=== PATIENT | female | born 1960 | race African-American/Black ===

== ENCOUNTER 2016-11-03 07:58 | Day surgery (SDC) | payer OTHER ==
[2016-11-03] MEDS ORDERED: PROPOFOL 20 ML ONE ×2 (08:01)
[2016-11-03 08:27] VITALS: BMI 32.3
[2016-11-03 10:59] VITALS: BP 134/76; PULSE 79; TEMP 98
== END 2016-11-03 10:45 | disposition home or self-care (01) ==
LOC: FASU-ENDO 07:58
PROVIDERS: ATTEND Internal Medicine Gastroenterology
PROC: 0DJD8ZZ Inspection of Lower Intestinal Tract, Via Natural or Artificial Opening Endoscopic (ICD-10-PCS; principal; 2016-11-03 09:06)
DX: Z12.11 Encounter for screening for malignant neoplasm of colon (principal)

== ENCOUNTER 2019-06-21 20:20 | Emergency (ER) | payer OTHER ==
[2019-06-21 20:29] VITALS: BP 138/83; PULSE 99; TEMP 98.5; BMI 29.8
--- NOTE | 2019-06-21 20:29 | PDOC ---
Rapid Medical Evaluation Time Seen by Provider: 06/21/19 20:22 Medical Evaluation: Allergies Allergy/AdvReac Type Severity Reaction Status Date / Time Sulfa (Sulfonamide Allergy Rash Verified 11/03/16 08:16 Antibiotics) 06/21/19 20:24 Pt c/o: slipped on ground on monday landed on back and ribs, hitting back on head, now with diff taking deep breath Pt on brief exam: lcta, vss, tender over rt post ribs near scapula Pt ordered for: ribs and cxr Pt to proceed to the ED Discharge Disposition - Diagnosis Rib pain - Referrals - Patient Instructions - Post Discharge Activity
[2019-06-21] MEDS ORDERED: ACETAMINOPHEN 325 MG TABLET (FP) PO ONE (20:50)
[2019-06-21] MEDS ORDERED: ACETAMINOPHEN 325 MG TABLET (FP) ONE (20:52)
[2019-06-21] MEDS ORDERED: ACETAMINOPHEN 650 MG/20.3 ML ORAL SOLUTION (CUPS) ONE (20:54)
--- NOTE | 2019-06-21 21:00 | PDOC ---
History of Present Illness - General Chief Complaint: Back Pain Stated Complaint: FALL Time Seen by Provider: 06/21/19 20:22 History Source: Patient - History of Present Illness Occurred: reports: other Pain Location: reports: back Method of Injury: Yes: fall Past History - Past Medical History Allergies/Adverse Reactions: Allergies Allergy/AdvReac Type Severity Reaction Status Date / Time Sulfa (Sulfonamide Allergy Rash Verified 06/21/19 20:45 Antibiotics) Anemia: No Asthma: No Cancer: No Cardiac Disorders: No CVA: No COPD: No CHF: No Dementia: No Diabetes: No GI Disorders: No Disorders: No HTN: Yes (BORDERLINE) Hypercholesterolemia: No Liver Disease: No Seizures: No Thyroid Disease: No - Surgical History Abdominal Surgery: No Appendectomy: No Cardiac Surgery: No Cholecystectomy: No Lung Surgery: No Neurologic Surgery: No - Psycho Social/Smoking Cessation Hx Smoking History: Former smoker Have you smoked in the past 12 months: No Information on smoking cessation initiated: No Hx Alcohol Use: No Drug/Substance Use Hx: No Substance Use Type: None Hx Substance Use Treatment: No Review of Systems - Review of Systems Respiratory: No: Shortness of Breath Cardiac (ROS): No: Chest Pain, Lightheadedness, Palpitations ABD/GI: No: Nausea, Vomiting, Abdominal cramping Neurological: No: Headache, Numbness, Tingling, Weakness, Dizziness *Physical Exam - Vital Signs Last Vital Signs Temp Pulse Resp BP Pulse Ox 98.5 F 99 H 19 138/83 98 06/21/19 20:24 06/21/19 20:24 06/21/19 20:24 06/21/19 20:24 06/21/19 20:24 - Physical Exam General Appearance: Yes: Appropriately Dressed. No: Apparent Distress HEENT: positive: Normal Voice Neck: positive: Supple Respiratory/Chest: positive: Lungs Clear, Normal Breath Sounds. negative: Chest Tender (no crepitus or step offs), Respiratory Distress Cardiovascular: positive: Regular Rate, S1, S2 Gastrointestinal/Abdominal: positive: Soft. negative: Tender Musculoskeletal: positive: Normal Inspection, Vertebral Tenderness (diffusely) Integumentary: positive: Dry, Warm Neurologic: positive: Fully Oriented, Alert, Normal Mood/Affect Medical Decision Making - Medical Decision Making 06/21/19 20:54 59-year-old female, no significant history, here with back pain. Patient states she slipped and fell down several steps 3 days ago, tumbling mostly onto her back and has been having diffuse back pain since, worse with deep inspiration, otherwise no shortness of breath, chest pain or palpitations. Did not hit head and no LOC, headache, dizziness, nausea or vomiting. Not on any blood thinners. No neuro sxs. See exam Back contusion No e/o serious injury on exam -XR rib/cxr neg for obvious fx/lung injury -Dc w/ OTC meds as needed Discharge - Discharge Information Problems reviewed: Yes Clinical Impression/Diagnosis: Back contusion Qualifiers: Encounter type: initial encounter Laterality: unspecified laterality Qualified Code(s): S20.229A - Contusion of unspecified back wall of thorax, initial encounter Fall Qualifiers: Encounter type: initial encounter Qualified Code(s): W19.XXXA - Unspecified fall, initial encounter Condition: Good Disposition: HOME - Follow up/Referral - Patient Discharge Instructions Patient Printed Discharge Instructions: Contusion Additional Instructions: Your xrays were negative for fracture or lung injury Take Tylenol as needed for muscular back pain - Post Discharge Activity
== END 2019-06-21 21:03 | disposition home or self-care (01) ==
LOC: JERFT 20:20
DX: S20.221A Contusion of right back wall of thorax, initial encounter (principal); W10.8XXA Fall (on) (from) other stairs and steps, initial encounter; Y93.89 Activity, other specified; Y92.89 Other specified places as the place of occurrence of the external cause; Y99.8 Other external cause status; I10 Essential (primary) hypertension; Z88.2 Allergy status to sulfonamides
CPT/HCPCS: 71046-TC-FY; 71101-TC-RT-FY; 99283-25

== ENCOUNTER 2020-12-07 11:15 | Emergency (ER) | payer OTHER ==
[2020-12-07] MEDS ORDERED: LACTATED RINGERS SOLUTION 1000 ML INFUS.BAG IV ONE (11:19)
[2020-12-07 11:28] VITALS: TEMP 98.3; BMI 31.1
[2020-12-07] MEDS ORDERED: ACETAMINOPHEN 1000 MG/100 ML VIAL (NON FORMULARY) IVPB ONE (11:42)
[2020-12-07] MEDS ORDERED: FAMOTIDINE 20 MG/50 ML IVPB 20 MG/50 ML MG IVPB ONE ×2 (11:42→11:44)
[2020-12-07] MEDS ORDERED: ACETAMINOPHEN INJECTION 100 ML IVPB ONE (11:45)
[2020-12-07 12:08] LABS: WHITE BLOOD COUNT 7.1 K/mm3 (4.0-10.8)
[2020-12-07 12:14] LABS: HEMATOCRIT 35.4 % (32.4-45.2); HEMOGLOBIN 11.6 GM/dl (10.7-15.3); MCH 28.6 pg (25.7-33.7); MCHC 32.8 g/dl (32.0-36.0); MEAN CELL VOLUME 87.2 fl (80-96); MEAN PLT VOLUME 8.1 fl (7.5-11.1); PLATELET COUNT 318 K/MM3 (134-434); RBC 4.06 M/mm3 (3.60-5.2); RDW 14.9 % (11.6-15.6)
[2020-12-07 12:23] LABS: ALBUMIN 4.3 g/dl (3.4-5.0); ALK PHOS 40 U/L (45-117); ANION GAP 12 MMOL/L (8-16); BILIRUBIN,TOTAL 0.8 mg/dl (0.2-1); CALCIUM 9.6 mg/dl (8.5-10); CHLORIDE 98 mmol/L (98-107); CO2 26 mmol/L (21-32); CREATININE 0.8 mg/dl (0.55-1.3); GLUCOSE,RANDOM 187 mg/dl (74-106); SGOT/AST 17 U/L (15-37); SGPT/ALT 15 U/L (13-61); SODIUM 136 mmol/L (136-145); TOT PROT 7.8 g/dl (6.4-8.2)
[2020-12-07 12:50] LABS: PLATELET ESTIMATE ADEQUATE
[2020-12-07 13:02] LABS: LIPASE 60 U/L (73-393)
[2020-12-07 13:16] LABS: CHOLESTEROL 263 mg/dl (50-200); HDL CHOLESTEROL 55 mg/dl (40-60); LDL CHOLESTEROL (ONLY DFH) 185 mg/dl (5-100); TRIGLYCERIDES 116 mg/dl (0-150)
[2020-12-07 13:19] LABS: CHOLESTEROL 259 mg/dL (50-200); TRIGLYCERIDES 129 mg/dL (0-150)
[2020-12-07 13:20] LABS: LDL CHOLESTEROL (ONLY SJRH) 165 mg/dL (5-100)
[2020-12-07 13:22] LABS: HDL CHOLESTEROL 59 mg/dL (40-60)
[2020-12-07 13:37] LABS: EPITHELIAL CELLS FEW /hpf
[2020-12-07 14:44] LABS: ACTIVATED PTT 23.4 SECONDS (25.2-36.5)
[2020-12-07 14:48] LABS: INR 1.16 (0.82-1.09); PROTHROMBIN TIME (PATIENT) 12.9 SEC (10.2-13.0)
[2020-12-07 15:03] VITALS: BP 132/89; PULSE 70
== END 2020-12-07 15:54 | disposition home or self-care (01) ==
LOC: FER 11:15
PROC: 3E0333Z Introduction of Anti-inflammatory into Peripheral Vein, Percutaneous Approach (ICD-10-PCS; principal; 2020-12-07)
PROC: 3E033GC Introduction of Other Therapeutic Substance into Peripheral Vein, Percutaneous Approach (ICD-10-PCS; 2020-12-07)
DX: R10.84 Generalized abdominal pain (principal)
CPT/HCPCS: 36415; 74177-TC; 76705-TC; 80053; 80061; 81003; 81015; 83036; 83690; 83721; 84484; 85025; 85610; 85730; 87086; 93005; 99285-25; J0131; Q9967